=== PATIENT | female | born 1945 | race African-American/Black ===

== ENCOUNTER 2025-06-14 12:17 | Inpatient (IN) | payer MEDICARE, MEDICAID ==
[~2025-06-14] VITALS: Ht 165.1 cm; Wt 89.4 kg
[2025-06-14 12:21] VITALS: O2SAT 100
[2025-06-14] MEDS: SODIUM CHLORIDE 0.9% 500 ML IV ONE (12:54)
[2025-06-14] MEDS: ONDANSETRON HCL 4MG/2ML INJ IV ONE (12:54)
[2025-06-14 13:18] LABS: HEMATOCRIT. 26.7 % (36.0-48.0); HEMOGLOBIN. 8.9 g/dL (12.0-16.0); MEAN PLATELET VOLUME 7.4 fl (7.4-10.4); PLATELET 337 x1000/uL (130-400); RED BLOOD CELL COUNT 2.66 mill/uL (4.2-5.4); RED CELL DISTRIBUTION WIDTH 15.3 % (11.6-14.6)
[2025-06-14 13:29] LABS: INR 1.0
[2025-06-14 13:33] LABS: CREATININE 1.8 mg/dL (0.6-1.0)
[2025-06-14 13:34] LABS: TROPONIN I HIGH SENSITIVITY 19 ng/L (3.0-34); UREA NITROGEN BLOOD 30 mg/dL (9-23)
[2025-06-14 13:35] LABS: ASPARTATE AMINOTRANSFERASE 14 IU/L (<34)
[2025-06-14 13:36] LABS: BILIRUBIN DIRECT 0.1 mg/dL (<=3.0); BILIRUBIN TOTAL 0.4 mg/dL (0.1-1.0); PROTEIN TOTAL 8.1 g/dL (6.0-8.3)
[2025-06-14 13:39] LABS: BAND% 11.0 % (1.0-6.0); LYMPHOCYTES % MANUAL 3.0 % (20.0-60.0); MONOCYTES % MANUAL 4.0 % (2.0-8.0); NEUTROPHILS % MANUAL 82.0 % (45.0-75.0); PLATELET ESTIMATE NORMAL
[2025-06-14] MEDS ORDERED: VANCOMYCIN 1000MG/250ML 250 ML IV ONE (14:00)
[2025-06-14] MEDS ORDERED: CEFEPIME 1GM IN DEXT 5% 50ML IV ONE (14:00)
[2025-06-14] MEDS ORDERED: VANCOMYCIN 1G PREMIX 250 ML IV SCH (14:00)
[2025-06-14] MEDS: VANCOMYCIN 1G PREMIX 200 ML IV SCH (14:13)
[2025-06-14] MEDS: POTASSIUM CHLORIDE 20MEQ TABLET SR PO ONE (16:37)
[2025-06-14] MEDS: CEFEPIME 1GM PREMIX 50ML IV SCH (16:45)
[2025-06-14 20:00] VITALS: BP 155/79; PULSE 106; RESP 20; TEMP 36.6; O2SAT 100
[2025-06-14] MEDS ORDERED: ONDANSETRON HCL 4MG/2ML INJ IV PRN (21:00)
[2025-06-14] MEDS ORDERED: CEFEPIME 1GM IN DEXT 5% 50ML IV SCH (21:00)
[2025-06-14] MEDS ORDERED: ACETAMINOPHEN 325MG TABLET PO PRN (21:00)
[2025-06-14] MEDS: CLONIDINE 0.2MG TABLET PO NR (22:05)
[2025-06-14] MEDS: PANTOPRAZOLE SODIUM 40 MG/VIAL IV SCH (22:05)
[2025-06-14] MEDS: DEXT 5%/0.45% NACL 1000ML 1,000 ML IV SCH (22:06)
[2025-06-15] VITALS (8 sets, daily range): BP systolic 107–155; BP diastolic 58–83; PULSE 60–106; RESP 18–20; TEMP 35.8–36.7516; O2SAT 98–100
[2025-06-15] MEDS: CEFEPIME 1GM PREMIX 50ML IV SCH (06:32)
[2025-06-15] MEDS: CLONIDINE 0.2MG TABLET PO PRN (06:33)
[2025-06-15] MEDS: VANCOMYCIN 750MG PMX (XELLIA) 150 ML IV SCH (11:10)
[2025-06-15] MEDS ORDERED: IPRATROPIUM/ALBUTEROL 0.5-3(2.5)MG/3ML NEB NEB PRN (12:00)
[2025-06-15] MEDS ORDERED: CLONIDINE 0.1MG TABLET PO PRN (12:00)
[2025-06-15] MEDS ORDERED: DOCUSATE SODIUM 100MG CAPSULE PO PRN (12:00)
[2025-06-15] MEDS ORDERED: MAGNESIUM/ALUMINUM HYDROXIDE/SIMETHICONE 30ML UDC PO PRN (12:00)
[2025-06-15] MEDS ORDERED: NA PHOS,M-B/NA PHOS,DI-BA ENEMA 118ML PR PRN (12:00)
[2025-06-15] MEDS: IPRATROPIUM/ALBUTEROL 0.5-3(2.5)MG/3ML NEB HHN PRN (16:50)
[2025-06-16] VITALS (12 sets, daily range): BP systolic 107–158; BP diastolic 50–85; PULSE 74–109; RESP 15–21; TEMP 36.114–37.7; O2SAT 98–100
[2025-06-16] MEDS: ALTEPLASE 2MG/VIAL ITC NR ×2 (15:39→15:41)
[2025-06-16] MEDS: VANCOMYCIN 750MG PMX (XELLIA) 150 ML IV SCH (18:52)
[2025-06-17] VITALS (13 sets, daily range): BP systolic 99–142; BP diastolic 50–67; PULSE 109–123; RESP 14–32; TEMP 36.22512–36.9; O2SAT 93–97
[2025-06-17] MEDS: CEFEPIME 1GM PREMIX 50ML IV SCH (06:02)
[2025-06-17 12:13] LABS: BG BASE EXCESS 3.0 mmol/L (-2.0-3.0); BG CARBOXYHEMOGLOBIN 1.2 % (0.5-1.5); BG DEOXYHEMOGLOBIN 4.4 % (0.0-5.0); BG FLOW(L/min) 2.00 L/min; BG HCO3 ACT 27.9 mmol/L (21.0-28.0); BG METHEMOGLOBIN 0.1 % (0.5-1.5); BG OXYGEN SATURATION 95.5 % (94.0-98.0); BG OXYHEMOGLOBIN 94.3 % (94.0-98.0); BG PCO2 44.2 mmHg (32.0-45.0); BG PH 7.418 (7.350-7.450); BG PO2 73.2 mmHg (83.0-108.0); BG SAMPLE SITE RIGHT RADIAL; BG TOTAL HEMOGLOBIN 10.1 g/dL (12.0-16.0); BG VENT MODE NASAL CANNULA
[2025-06-17 13:52] LABS: HEMATOCRIT. 22.7 % (36.0-48.0); HEMOGLOBIN. 7.3 g/dL (12.0-16.0); MEAN PLATELET VOLUME 7.6 fl (7.4-10.4); PLATELET 236 x1000/uL (130-400); RED BLOOD CELL COUNT 2.24 mill/uL (4.2-5.4); RED CELL DISTRIBUTION WIDTH 16.2 % (11.6-14.6)
[2025-06-17 14:01] LABS: UREA NITROGEN BLOOD 56 mg/dL (9-23)
[2025-06-17 14:03] LABS: ASPARTATE AMINOTRANSFERASE 8 IU/L (<34); BILIRUBIN TOTAL 0.3 mg/dL (0.1-1.0); PROTEIN TOTAL 6.9 g/dL (6.0-8.3)
[2025-06-17 14:32] LABS: CREATININE 3.5 mg/dL (0.6-1.0)
[2025-06-17 14:58] LABS: BAND% 8.0 % (1.0-6.0); EOSINOPHILS % MANUAL 2.0 % (0.0-5.0); LYMPHOCYTES % MANUAL 5.0 % (20.0-60.0); MONOCYTES % MANUAL 12.0 % (2.0-8.0); MYELOCYTES % 1.0 % (0-0); NEUTROPHILS % MANUAL 72.0 % (45.0-75.0); PLATELET ESTIMATE NORMAL
[2025-06-17] MEDS ORDERED: DEXTROSE 50% WATER 50ML SYRINGE IV PRN ×2 (15:00→15:30)
[2025-06-17] MEDS ORDERED: BLOOD SUGAR DIAGNOSTIC STRIP TEST SCH (17:20)
[2025-06-17] MEDS: BLOOD SUGAR DIAGNOSTIC STRIP TEST SCH (17:46)
[2025-06-17] MEDS: INSULIN LISPRO 100 UNITS/ML SUBCUT SCH (17:50)
[2025-06-17] MEDS ORDERED: INSULIN LISPRO 100 UNITS/ML SUBCUT SCH (17:50)
[2025-06-17 22:46] LABS: BG BASE EXCESS -1.2 mmol/L (-2.0-3.0); BG CARBOXYHEMOGLOBIN 0.5 % (0.5-1.5); BG DEOXYHEMOGLOBIN 7.3 % (0.0-5.0); BG FLOW(L/min) 3.00 L/min; BG FRACTION INSPIRED OXYGEN 32; BG HCO3 ACT 22.3 mmol/L (21.0-28.0); BG METHEMOGLOBIN 0.3 % (0.5-1.5); BG OXYGEN SATURATION 92.6 % (94.0-98.0); BG OXYHEMOGLOBIN 91.9 % (94.0-98.0); BG PCO2 32.4 mmHg (32.0-45.0); BG PH 7.455 (7.350-7.450); BG PO2 60.8 mmHg (83.0-108.0); BG SAMPLE SITE RIGHT RADIAL; BG TOTAL HEMOGLOBIN 9.1 g/dL (12.0-16.0); BG VENT MODE NASAL CANNULA
[2025-06-17] MEDS: DILTIAZEM HCL 5MG/ML 5ML VIAL IV NR (23:46)
[2025-06-18] VITALS (14 sets, daily range): BP systolic 99–123; BP diastolic 52–86; PULSE 92–151; RESP 15–35; TEMP 36.4–37.6; O2SAT 91–100
[2025-06-18] MEDS: ACETAMINOPHEN 650MG/20.3ML UDC GT PRN (01:20)
[2025-06-18] MEDS: AMIKACIN SULFATE IV NR (03:36)
[2025-06-18] MEDS: DEXT 5% IV NR (03:36)
[2025-06-18] MEDS: WATER IV NR (03:36)
[2025-06-18 05:56] LABS: BG BASE EXCESS -3.1 mmol/L (-2.0-3.0); BG CARBOXYHEMOGLOBIN 0.4 % (0.5-1.5); BG DEOXYHEMOGLOBIN 2.3 % (0.0-5.0); BG FRACTION INSPIRED OXYGEN 30; BG HCO3 ACT 21.4 mmol/L (21.0-28.0); BG METHEMOGLOBIN 0.3 % (0.5-1.5); BG OXYGEN SATURATION 97.7 % (94.0-98.0); BG OXYHEMOGLOBIN 97.0 % (94.0-98.0); BG PCO2 35.9 mmHg (32.0-45.0); BG PH 7.393 (7.350-7.450); BG PO2 91.8 mmHg (83.0-108.0); BG SAMPLE SITE LEFT RADIAL; BG TOTAL HEMOGLOBIN 8.4 g/dL (12.0-16.0); BG VENT MODE MASK - BIPAP; BG VENT RATE 18.0 set
[2025-06-18] MEDS: INSULIN LISPRO 100 UNITS/ML SUBCUT NR (09:29)
[2025-06-18] MEDS: VANCOMYCIN 500 MG in DEXT 5% WATER 100 ML IV SCH (11:22)
[2025-06-18] MEDS ORDERED: METRONIDAZOLE 500 MG PREMIX 100 ML IV SCH (12:15)
[2025-06-18] MEDS: SODIUM CHLORIDE 0.45% 1,000 ML IV SCH (12:41)
[2025-06-18 12:56] LABS: BG BASE EXCESS -2.0 mmol/L (-2.0-3.0); BG CARBOXYHEMOGLOBIN 0.7 % (0.5-1.5); BG DEOXYHEMOGLOBIN 0.1 % (0.0-5.0); BG FRACTION INSPIRED OXYGEN 50; BG HCO3 ACT 23.3 mmol/L (21.0-28.0); BG METHEMOGLOBIN 0.2 % (0.5-1.5); BG OXYGEN SATURATION 99.9 % (94.0-98.0); BG OXYHEMOGLOBIN 99.0 % (94.0-98.0); BG PCO2 42.0 mmHg (32.0-45.0); BG PH 7.362 (7.350-7.450); BG PO2 233.2 mmHg (83.0-108.0); BG SAMPLE SITE RIGHT RADIAL; BG TOTAL HEMOGLOBIN 9.9 g/dL (12.0-16.0); BG VENT MODE MASK - BIPAP; BG VENT RATE 18.0 set
[2025-06-18 13:14] LABS: HEMATOCRIT. 24.1 % (36.0-48.0); HEMOGLOBIN. 7.7 g/dL (12.0-16.0); MEAN PLATELET VOLUME 8.2 fl (7.4-10.4); PLATELET 174 x1000/uL (130-400); RED BLOOD CELL COUNT 2.36 mill/uL (4.2-5.4); RED CELL DISTRIBUTION WIDTH 16.8 % (11.6-14.6)
[2025-06-18] MEDS: MEROPENEM 1G/100ML 100 ML IV SCH (13:19)
[2025-06-18 13:23] LABS: CREATININE 3.4 mg/dL (0.6-1.0); UREA NITROGEN BLOOD 54 mg/dL (9-23)
[2025-06-18 13:34] LABS: PHOSPHORUS 0.6 mg/dL (2.5-4.9)
[2025-06-18 13:43] LABS: BAND% 25.0 % (1.0-6.0); BASOPHILS % MANUAL 1.0 % (0.0-2.0); LYMPHOCYTES % MANUAL 4.0 % (20.0-60.0); MONOCYTES % MANUAL 10.0 % (2.0-8.0); NEUTROPHILS % MANUAL 60.0 % (45.0-75.0); PLATELET ESTIMATE NORMAL
[2025-06-18] MEDS: POTASSIUM CHLORIDE 20MEQ/PACKET NG SCH (14:30)
[2025-06-18] MEDS: INSULIN LISPRO 100 UNITS/ML SUBCUT SCH (14:44)
[2025-06-18] MEDS: INSULIN REGULAR (HUMULIN R) 1000UNITS/10ML VIAL IV SCH (15:45)
[2025-06-18] MEDS: SODIUM PHOSPHATE 20 MMOL in DEXT 5% WATER 243.3333 ML IV SCH (15:54)
[2025-06-18] MEDS: INSULIN GLARGINE 100 UNITS/ML SUBCUT SCH (19:21)
[2025-06-18] MEDS ORDERED: INSULIN GLARGINE 100 UNITS/ML SUBCUT SCH (22:00)
[2025-06-19] VITALS (18 sets, daily range): BP systolic 101–152; BP diastolic 52–72; PULSE 92–108; RESP 17–24; TEMP 36.50292–37.5; O2SAT 99–100
[2025-06-19] MEDS ORDERED: DOCUSATE SODIUM SUGAR FREE 100MG/10ML UDC PEG PRN (18:45)
[2025-06-19] MEDS ORDERED: ACETAMINOPHEN 650MG/20.3ML UDC PO PRN (18:45)
[2025-06-19] MEDS: MEROPENEM 1G/100ML 100 ML IV SCH (23:44)
[2025-06-20] VITALS (12 sets, daily range): BP systolic 120–135; BP diastolic 65–78; PULSE 94–101; RESP 19–26; TEMP 36.3–37.4; O2SAT 98–100
[2025-06-20] MEDS: VANCOMYCIN 500 MG in DEXT 5% WATER 100 ML IV SCH (11:55)
[2025-06-20 15:18] LABS: BASOPHILS % 0.2 % (0.0-2.0); EOSINOPHILS % 2.5 % (0.0-5.0); HEMATOCRIT. 24.3 % (36.0-48.0); HEMOGLOBIN. 8.0 g/dL (12.0-16.0); LYMPHOCYTES % 8.1 % (20.0-50.0); MEAN PLATELET VOLUME 7.9 fl (7.4-10.4); MONOCYTES % 9.3 % (2.0-8.0); NEUTROPHILS % 79.9 % (40.0-76.0); PLATELET 183 x1000/uL (130-400); RED BLOOD CELL COUNT 2.49 mill/uL (4.2-5.4); RED CELL DISTRIBUTION WIDTH 16.3 % (11.6-14.6)
[2025-06-20 15:30] LABS: CREATININE 3.6 mg/dL (0.6-1.0); UREA NITROGEN BLOOD 72.0 mg/dL (9-23)
[2025-06-21] VITALS (21 sets, daily range): BP systolic 112–147; BP diastolic 59–106; PULSE 84–97; RESP 13–25; TEMP 36.4–37.1; O2SAT 99–100
[2025-06-21 05:48] LABS: CREATININE 3.8 mg/dL (0.6-1.0); UREA NITROGEN BLOOD 76.0 mg/dL (9-23)
[2025-06-21 06:07] LABS: BASOPHILS % 0.4 % (0.0-2.0); EOSINOPHILS % 2.6 % (0.0-5.0); HEMATOCRIT. 27.0 % (36.0-48.0); HEMOGLOBIN. 8.9 g/dL (12.0-16.0); LYMPHOCYTES % 11.2 % (20.0-50.0); MEAN PLATELET VOLUME 8.3 fl (7.4-10.4); MONOCYTES % 8.1 % (2.0-8.0); NEUTROPHILS % 77.7 % (40.0-76.0); PLATELET 205 x1000/uL (130-400); RED BLOOD CELL COUNT 2.71 mill/uL (4.2-5.4); RED CELL DISTRIBUTION WIDTH 16.9 % (11.6-14.6)
[2025-06-21] MEDS: ACETAMINOPHEN 650MG/20.3ML UDC PEG PRN (11:11)
[2025-06-21] MEDS: AZITHROMYCIN 500 MG TABLET GT SCH (18:02)
[2025-06-21 19:19] LABS: HEPATITIS A AB IGM NEGATIVE (Negative)
[2025-06-21 19:20] LABS: HEPATITIS B CORE AB IGM NEGATIVE (Negative); HEPATITIS C AB NON REACTIVE (Neg) (Negative)
[2025-06-22] VITALS (11 sets, daily range): BP systolic 118–140; BP diastolic 53–66; PULSE 76–93; RESP 17–27; TEMP 36.6–37.3; O2SAT 97–100
[2025-06-22 08:59] LABS: BASOPHILS % 0.3 % (0.0-2.0); EOSINOPHILS % 2.9 % (0.0-5.0); HEMATOCRIT. 24.1 % (36.0-48.0); HEMOGLOBIN. 7.8 g/dL (12.0-16.0); LYMPHOCYTES % 15.7 % (20.0-50.0); MEAN PLATELET VOLUME 8.3 fl (7.4-10.4); MONOCYTES % 7.5 % (2.0-8.0); NEUTROPHILS % 73.6 % (40.0-76.0); PLATELET 226 x1000/uL (130-400); RED BLOOD CELL COUNT 2.42 mill/uL (4.2-5.4); RED CELL DISTRIBUTION WIDTH 16.7 % (11.6-14.6)
[2025-06-22 09:05] LABS: CREATININE 3.1 mg/dL (0.6-1.0); UREA NITROGEN BLOOD 59.0 mg/dL (9-23)
[2025-06-22 12:43] LABS: ASPARTATE AMINOTRANSFERASE 23 IU/L (<34); BILIRUBIN DIRECT < 0.1 mg/dL (<=3.0); BILIRUBIN TOTAL 0.2 mg/dL (0.1-1.0); PROTEIN TOTAL 7.6 g/dL (6.0-8.3)
[2025-06-22] MEDS: MEROPENEM 500MG/50ML 50 ML IV SCH (21:55)
[2025-06-23] VITALS (21 sets, daily range): BP systolic 92–154; BP diastolic 59–89; PULSE 74–98; RESP 14–23; TEMP 36.6–37.05852; O2SAT 87–100
[2025-06-23 17:38] LABS: TRIGLYCERIDE 137 mg/dL (0-150)
[2025-06-23 17:39] LABS: LDL CHOLESTEROL 81 mg/dL (5-100)
[2025-06-23] MEDS: VANCOMYCIN 500 MG in DEXT 5% WATER 100 ML IV SCH (21:59)
[2025-06-24] VITALS (12 sets, daily range): BP systolic 118–145; BP diastolic 61–99; PULSE 76–89; RESP 17–22; TEMP 36.7–37.2; O2SAT 68–100
[2025-06-24 16:31] LABS: BASOPHILS % 0.5 % (0.0-2.0); EOSINOPHILS % 4.8 % (0.0-5.0); HEMATOCRIT. 25.6 % (36.0-48.0); HEMOGLOBIN. 8.4 g/dL (12.0-16.0); LYMPHOCYTES % 18.9 % (20.0-50.0); MEAN PLATELET VOLUME 8.1 fl (7.4-10.4); MONOCYTES % 8.9 % (2.0-8.0); NEUTROPHILS % 66.9 % (40.0-76.0); PLATELET 360 x1000/uL (130-400); RED BLOOD CELL COUNT 2.55 mill/uL (4.2-5.4); RED CELL DISTRIBUTION WIDTH 16.9 % (11.6-14.6)
[2025-06-24 16:45] LABS: CREATININE 3.4 mg/dL (0.6-1.0); UREA NITROGEN BLOOD 58.0 mg/dL (9-23)
[2025-06-25] VITALS (20 sets, daily range): BP systolic 97–151; BP diastolic 58–85; PULSE 82–113; RESP 14–23; TEMP 36.1–37; O2SAT 97–100
[2025-06-25] MEDS ORDERED: LIDOCAINE HCL 1% 10 MG/ML 10ML VIAL ONE (06:52)
[2025-06-25 08:40] LABS: BASOPHILS % 0.6 % (0.0-2.0); EOSINOPHILS % 5.1 % (0.0-5.0); HEMATOCRIT. 24.5 % (36.0-48.0); HEMOGLOBIN. 8.0 g/dL (12.0-16.0); LYMPHOCYTES % 23.8 % (20.0-50.0); MEAN PLATELET VOLUME 8.0 fl (7.4-10.4); MONOCYTES % 8.3 % (2.0-8.0); NEUTROPHILS % 62.2 % (40.0-76.0); PLATELET 377 x1000/uL (130-400); RED BLOOD CELL COUNT 2.44 mill/uL (4.2-5.4); RED CELL DISTRIBUTION WIDTH 16.9 % (11.6-14.6)
[2025-06-25 08:59] LABS: CREATININE 4.1 mg/dL (0.6-1.0); UREA NITROGEN BLOOD 68.0 mg/dL (9-23)
[2025-06-25] MEDS: ASPIRIN 81MG TABLET PO SCH (12:08)
[2025-06-25] MEDS: ATORVASTATIN CALCIUM 40MG TABLET PO SCH (20:33)
== END 2025-06-25 22:30 | DRG 871 ==
LOC: ER 12:17 → 6WST 15:14 → EDBEDREQ 15:19 → EDBEDREQTM 15:19 → ENRESERV 17:06 → 5EST 06-18 01:23
PROVIDERS: ADMIT Internal Medicine; ATTEND Internal Medicine
PROC: 5A0935A Assistance with Respiratory Ventilation, Less than 24 Consecutive Hours, High Flow/Velocity Cannula (ICD-10-PCS; principal; 2025-06-15)
PROC: 5A1D70Z Performance of Urinary Filtration, Intermittent, Less than 6 Hours Per Day (ICD-10-PCS; 2025-06-16)
PROC: 5A1D70Z Performance of Urinary Filtration, Intermittent, Less than 6 Hours Per Day (ICD-10-PCS; 2025-06-17)
PROC: 5A09357 Assistance with Respiratory Ventilation, Less than 24 Consecutive Hours, Continuous Positive Airway Pressure (ICD-10-PCS; 2025-06-18)
PROC: 4A00X4Z Measurement of Central Nervous Electrical Activity, External Approach (ICD-10-PCS; 2025-06-18)
PROC: 5A1D70Z Performance of Urinary Filtration, Intermittent, Less than 6 Hours Per Day (ICD-10-PCS; 2025-06-19)
PROC: 5A1D70Z Performance of Urinary Filtration, Intermittent, Less than 6 Hours Per Day (ICD-10-PCS; 2025-06-21)
PROC: 5A1D70Z Performance of Urinary Filtration, Intermittent, Less than 6 Hours Per Day (ICD-10-PCS; 2025-06-23)
PROC: 5A1D70Z Performance of Urinary Filtration, Intermittent, Less than 6 Hours Per Day (ICD-10-PCS; 2025-06-25)
DX: A41.51 Sepsis due to Escherichia coli [E. coli] (principal); G93.41 Metabolic encephalopathy; L89.153 Pressure ulcer of sacral region, stage 3; N18.6 End stage renal disease; R53.2 Functional quadriplegia; I63.89 Other cerebral infarction; I13.2 Hypertensive heart and chronic kidney disease with heart failure and with stage 5 chronic kidney disease, or end stage renal disease; K80.00 Calculus of gallbladder with acute cholecystitis without obstruction; R09.02 Hypoxemia; Z91.158 Patient's noncompliance with renal dialysis for other reason; G40.909 Epilepsy, unspecified, not intractable, without status epilepticus; F03.90 Unspecified dementia, unspecified severity, without behavioral disturbance, psychotic disturbance, mood disturbance, and anxiety; R13.10 Dysphagia, unspecified; Z93.1 Gastrostomy status; D63.1 Anemia in chronic kidney disease; I50.9 Heart failure, unspecified; E11.22 Type 2 diabetes mellitus with diabetic chronic kidney disease; E11.65 Type 2 diabetes mellitus with hyperglycemia; E83.39 Other disorders of phosphorus metabolism; E78.5 Hyperlipidemia, unspecified; R65.20 Severe sepsis without septic shock; Z88.0 Allergy status to penicillin; Z79.899 Other long term (current) drug therapy; Z79.4 Long term (current) use of insulin
CPT/HCPCS: 36415; 36600; 70551; 71045; 74176; 76705; 78227; 80048; 80053; 80061; 80076; 80150; 80202; 82010; 82140; 82310; 82375; 82728; 82805; 82962; 83036; 83540; 83550; 83605; 83735; 83880; 84100; 84145; 84484; 85025; 86705; 86709; 86850; 86900; 87077; 87186; 87340; 90935; 93005; 93306; 93880; 94070; 94640; 94660; 94664; 95816; 99291; A4606; A9537; J0278; J0692; J1815; J2003; J2185; J2405; J2470; J2997; J3373; J3490; J7040; J7060